=== PATIENT | female | born 1935 | race Caucasian/White ===

== ENCOUNTER 2016-11-29 16:16 | Inpatient (IN) | payer MEDICARE, MEDICAID ==
[~2016-11-29] VITALS: Ht 167.6 cm; Wt 72.1 kg
[2016-11-29 19:00] VITALS: BP 99/53
[2016-11-29] MEDS ORDERED: PHOSLO667 MG PO (19:03)
[2016-11-29] MEDS ORDERED: FOSINOPRIL SODI40 MG PO (19:04)
[2016-11-29] MEDS ORDERED: VITAMIN B-1000 MCG/M SQ (19:05)
[2016-11-29] MEDS ORDERED: LASIX80 MG PO (19:06)
--- NOTE | 2016-11-29 19:07 | NUR ---
184 RECEIVED PT VIA EMS FROM [facility]. PT WITH ESRD, MISSED DIALYSIS THURSDAY DIDNT FEEL WELL SHOWED UP TO ER WITH PNA AND POSSIBLE SEPSIS NEW ONSET A FIB, AMIODERONE GTT. PT TRANSFERRED TO BED HOOKED UP, AWAKE ALERT ORIENTED ABLE TO ANSWER ALL QUESTIONS. PIV X 2 TO RIGHT ARM. RESERVE LEFT. 02 ON 4L. BP LOW. HR IN 120S
[2016-11-29] MEDS ORDERED: ECOTRIN325 MG PO (19:08)
[2016-11-29] MEDS ORDERED: PREDNISONE20 MG PO (19:08)
[2016-11-29] MEDS ORDERED: DESERYL100 MG PO (19:08)
[2016-11-29] MEDS ORDERED: LOVASTATIN20 MG PO (19:09)
[2016-11-29] MEDS ORDERED: COREG12.5 MG PO (19:09)
--- NOTE | 2016-11-29 19:40 | NUR ---
Assessment complete. See flowsheet. Pt awake, alert, oriented x 4 and following all commands and conversation. Pupils size 3 bilaterally ERRLA. Pt moving all extremities with 4/5 strength. No edema noted. O2 @ 4L NC and decreased to 3L NC for SPO2 98%. Respirations unlabored. Lung sounds present crackles to all basurto. Pt cough strong and non-productive. HR CAF with S1S2 auscutlated. All peripheral pulses weak/palpable. Right A/C PIV site CDI with NS infusion moved to site and rate decreased from 50cc/hr to 5cc/hr KVO rate with Amiodarone gtt infusing @ 1mg/min (33.3cc/hr). Right wrist PIV site CDI no s/s infection or infiltration saline locked. Abdomen soft, non-tender with BS present to all quadrants. Left upper arm fistula site CDI thrill palpated/bruit auscultated. SCDs secured bilaterally. Temp 98.5F orally. Call light and bedside table placed within pt reach. Fresh ice water provided. Pt denies pain at this time. Heels bridged. No further request at this time. CPOC.
[2016-11-29 19:51] VITALS: BP 99/48; BMI 25.7
[2016-11-29 20:00] VITALS: BP 92/61
[2016-11-29 21:00] VITALS: BP 99/56
--- NOTE | 2016-11-29 21:00 | NUR ---
here with pt seen. Status relayed. Orders received. Family here for visitation with update given and questions addressed.
--- NOTE | 2016-11-29 21:40 | NUR ---
Pt resting with no changes. Call light and bedside table remain within pt reach. CPOC.
[2016-11-29 22:00] VITALS: BP 97/56
[2016-11-29 23:00] VITALS: BP 86/45
--- NOTE | 2016-11-29 23:40 | NUR ---
Reassessment complete. See flowsheet. Pt resting quietly with VSS. No s/s pain or distress. O2 @ 3L NC. Respirations unlabored. HR remains CAF with S1S2 auscultated. All peripheral pulses remain weak/palpable. NO IVF changes to note. PIV sites remains CDI; unchanged. BS +. Pt comfortable at this time and denies repositioning. Call light and bedside table within pt reach. No other changes to note. CPOC.
[2016-11-30] VITALS (24 sets, daily range): BP systolic 78–109; BP diastolic 42–55; Ht 167.6 cm; Wt 72.1 kg
--- NOTE | 2016-11-30 00:01 | NUR ---
Cordarone gtt rate decreased to 0.5mg/min (16.7cc/hr). Pt helped on bedpan per request for void attempt.
--- NOTE | 2016-11-30 01:40 | NUR ---
Pt resting quietly with VSS. NO s/s pain or distress and allowed to continue resting undisturbed. Call light and bedside table remain within pt reach. CPOC.
--- NOTE | 2016-11-30 03:40 | NUR ---
Pt awake and repositioned for CXR. Afterwards, pt positioned to right side per request with HOB @ 30 degrees. No neuro changes to note. O2 @ 3L NC. Lung sounds continue to present crackles to all basurto. HR currently UCAF 113BPM with S1S2 auscultated. PIV sites CDI with NO IVF changes to note. BS +. Arms and heels rebridged. Pt denies further request at this time. Call light and bedside table remain within pt reach. CPOC.
--- NOTE | 2016-11-30 05:40 | NUR ---
Pt resting quietly with VSS. NO s/s pain or distress and allowed to continue resting undisturbed. Call light and bedside table remain within pt reach. CPOC.
[2016-11-30 06:47] LABS: BASOPHILS 0.1 % (0.0-2.0); CALCIUM 8.3 mg/dL (8.5-10.1); CARBON DIOXIDE 20.3 mmol/L (21.0-32.0); CREATININE - SERUM 7.7 mg/dL (0.6-1.3); EOSINOPHILS 0 % (0-7); HEMATOCRIT 27.1 % (36.0-48.0); HEMOGLOBIN 9.1 g/dL (12-16); IMMATURE GRANULOCYTES 11.1 % (0-5); LYMPHOCYTES 3.7 % (15-50); MCH 32.6 pg (26.0-34.0); MCHC 33.6 g/dL (31.0-37.0); MCV 97.1 fL (80.0-100.0); MEAN PLATELET VOLUME 11.6 fL (7.4-10.4); MONOCYTES 4.3 % (2-11); NEUTROPHILS 80.8 % (40-80); PHOSPHOROUS 5.2 mg/dL (2.5-4.9); PLATELET COUNT 187 10x3/uL (130-400); POTASSIUM - SERUM 4.3 mmol/L (3.5-5.1); RBC 2.79 10x6/uL (4.00-5.40); RDW 13.1 % (11.5-14.5); WBC 18.9 10x3/uL (4.8-10.8)
--- NOTE | 2016-11-30 08:43 | NUR ---
0700 received pt lying in bed eyes closed, no distress noted. vss on monitor. normal sinus rythm on monitor in 60s remains on amiodorone gtt at 0.5mg/min. 02 at 3l per nc. lungs remain course with crackels. breakfast given and set up. PIV to right ac and forearm patent. no complaints will cont to monitor. 0800 renal employment assistant in to round 0840 dr baer paged about amiodorone gtt, call back and orders given to keep the gtt on at this time.
[2016-11-30 14:16] LABS: APPEARANCE HAZY (CLEAR); BILIRUBIN NEGATIVE (NEGATIVE); COLOR YELLOW (YELLOW); GLUCOSE 50 mg/dL (NEGATIVE); KETONE NEGATIVE (NEGATIVE); LEUKOCYTE ESTERASE 1+ (NEGATIVE); NITRITE NEGATIVE (NEGATIVE); PROTEIN 2+ mg/dL (NEGATIVE); UROBILINOGEN NORMAL (NORMAL)
[2016-11-30 14:25] LABS: EPITHELIAL CELLS 0-5 /hpf (0-5); RED CELLS - URINE 0-5 /hpf (0-5)
[2016-11-30 14:26] LABS: BACTERIA MODERATE /hpf (NONE SEEN)
--- NOTE | 2016-11-30 19:20 | NUR ---
ASSESSMENT COMPLETE. SINUS VIGREN SHOWING ON MONITOR. RR CRACKLES BILATERALLY THROUGHOUT ALL LOBES. AAO. PERRLA. GENERALIZED WEAKNESS AND SWELLING. PT ABLE TO CHANGE POSITIONS INDEPENDENTLY. LT ARM RESERVE; FISTULA PRESENT. DENIES NEEDS AT THIS TIME. WILL MONITOR.
--- NOTE | 2016-11-30 21:45 | NUR ---
PT TAKEN OFF NC @3L TO ROOM AIR. PT SAT 98% ON ROOM AIR. DENIES SOB. WILL CONTINUE TO MONITOR.
--- NOTE | 2016-11-30 23:15 | NUR ---
REASSESSMENT COMPLETE. NO CHANGES FROM PREVIOUS ASSESSMENT. WILL CONTINUE TO MONITOR.
[2016-12-01] VITALS (25 sets, daily range): BP systolic 104–139; BP diastolic 48–64
--- NOTE | 2016-12-01 01:05 | NUR ---
PT RESTING; EYES CLOSED. NO DISTRESS NOTED. VSS. CALL LIGHT IN REACH. WILL CONTINUE TO MONITOR.
--- NOTE | 2016-12-01 03:10 | NUR ---
REASSESSMENT COMPLETE. NO CHANGES FROM PREVIOUS ASSESSMENT. WILL CONTINUE TO MONITOR.
--- NOTE | 2016-12-01 05:15 | NUR ---
PT RESTING; EYES CLOSED. VSS. NO DISTRESS NOTED. WILL CONTINUE TO MONITOR.
[2016-12-01 06:29] LABS: BASOPHILS 0 % (0.0-2.0); EOSINOPHILS 0.4 % (0-7); HEMOGLOBIN 9.6 g/dL (12-16); IMMATURE GRANULOCYTES 0.5 % (0-5); LYMPHOCYTES 3.8 % (15-50); MCH 32.5 pg (26.0-34.0); MCHC 33.1 g/dL (31.0-37.0); MCV 98.3 fL (80.0-100.0); MEAN PLATELET VOLUME 11.2 fL (7.4-10.4); MONOCYTES 3.3 % (2-11); PLATELET COUNT 188 10x3/uL (130-400); RBC 2.95 10x6/uL (4.00-5.40); RDW 13.1 % (11.5-14.5); WBC 22.8 10x3/uL (4.8-10.8)
[2016-12-01 06:32] LABS: ANION GAP 21.7 mmol/L (8-16); CALCIUM 8.3 mg/dL (8.5-10.1); CREATININE - SERUM 8.2 mg/dL (0.6-1.3); PHOSPHOROUS 5.4 mg/dL (2.5-4.9); POTASSIUM - SERUM 3.7 mmol/L (3.5-5.1)
--- NOTE | 2016-12-01 07:00 | NUR ---
REC'D REPORT AND RESUMED CARE, SLEEPING AROUSABLE TO VERBAL, ORIENTED, DENIES PAIN. ASSESSMENT COMPLETE PER FLOWSHEET, LEFT ARM FISTULA WITH NO BRUIE OR THRILL, REPOSITIONED UP AND TO LEFT SIDE WITH PILLOW PROPPED TO BACK AND HEELS FLOATED, CALL LIGHT IN REACH, VOICES NO NEEDS AT THIS TIME
--- NOTE | 2016-12-01 09:42 | NUR ---
NUTRITION MONITORING & EVAL PT SLEEPING. NURSING REPORTS PT ONLY TAKING SMALL AMTS PO. WILL CONTINUE TO PROVIDE RENAL DIET, NEPRO. MONITOR PT PROGRESS. RD FOLLOWING
--- NOTE | 2016-12-01 09:52 | CN ---
PATIENT NAME:STEVENSON ROMERO MEDICAL RECORD: [id number] : 35 LOCATION:[id number] ADMIT DATE: 11/29/16 ACCOUNT: [id number] CONSULTING PHYSICIAN: JAMA LANDAVERDE MD REFERRING PHYSICIAN: WASHINGTON MCCRARY MD DATE OF CONSULTATION: 11/30/2016 HISTORY OF PRESENT ILLNESS: An 81-year-old lady with a known history of coronary artery disease. She has a history of end-stage renal disease, on dialysis, began feeling bad on Thursday, missed dialysis Thursday, presented to the ER in [place], was transferred here and found to be in atrial fibrillation with RVR, started on amiodarone drip, responded nicely, converted to normal sinus rhythm with basically normal 12-lead. She currently is feeling better on antibiotics, comfortable with normal conversation. We are asked to see her concerning her cardiovascular status. PAST MEDICAL HISTORY: Includes: 1. History of hypertension. 2. Dyslipidemia. 3. Restless leg syndrome. ALLERGIES: PENICILLIN. SOCIAL HISTORY: Lives in [place]. She is a nonsmoker, nondrinker. Good family support, has some difficulties in her ADLs. MEDICATIONS: Include lovastatin 20 at bedtime, Coreg 12.5 b.i.d., Monopril 40 daily, trazodone 100 at bedtime, aspirin 325 daily, Lasix 80 b.i.d., prednisone 20 daily. REVIEW OF SYSTEMS: The patient reports easy bruising but reports no swollen glands. The patient reports no fever, no night sweats, no significant weight gain, no significant weight loss. No significant exercise tolerance. The patient reports no dry eyes, no irritation, no vision change. Patient reports no difficulty hearing and no ear pain. Patient reports no frequent nose bleeds or nose and sinus problems. Patient reports on arm pain on exertion. No shortness of breath while lying down. No history of heart murmur. Patient reports no cough, no wheezing or coughing up blood. Patient reports no abdominal pain, no vomiting. Normal appetite. No diarrhea and not vomiting blood. No nausea and no constipation. Patient reports no incontinence. No difficulty urinating. No hematuria. No increased frequency. Patient reports no muscle aches. No weakness, no arthralgias, no back pain. No swelling of the extremities. Patient reports no abnormal mole, no jaundice, no rashes. Reports no loss of consciousness. No weakness and no numbness. No seizures, dizziness, or headaches. The patient reports no depression, no sleep disturbance, feeling safe in a relationship and no alcohol abuse. Patient reports on fatigue. Reports no runny nose or sinus pressure. No itching, no hives, and no frequent sneezing. PHYSICAL EXAMINATION: GENERAL: Elderly female, in no acute distress, multiple ecchymotic areas over the extremities. VITAL SIGNS: Blood pressure 108/48, pulse 67 and regular. HEENT: Normocephalic, atraumatic. NECK: No bruits noted. CONSULT REPORT [id number] ROMEROSTEVENSON HEART: Regular, soft II/ systolic ejection murmur. LUNGS: Good air excursion. ABDOMEN: Soft and nontender. EXTREMITIES: Pulses 2+. No edema. IMPRESSION: Atrial fibrillation, suspect secondary to current underlying illness and catecholamine drugs. At this point in time, continue amiodarone and treat this probably as a postop atrial fibrillation with amiodarone 4-6 weeks post-discharge and then expect we can stop this agent due to easy cardioversion. TRANSINT:[id number] Voice Confirmation ID: [id number] DOCUMENT ID: [id number] JAMA LANDAVERDE MD at 0952 CC: [id number] DICTATION DATE: 11/30/16957 SUB ASSEMBLY TEAM WORKER: 11/30/16 1130 ADM IN [id number] [place] [address]
--- NOTE | 2016-12-01 11:00 | NUR ---
SPOKE WITH JOHNNY AT DR TAI OFFICE RE: CONSULT FOR CATHIE, ASSESSMENT COMPLETE, SLEEPING WITH NO SIGNS OF DISTRESS, VSS, NO NEEDS AT THIS TIME
--- NOTE | 2016-12-01 12:15 | NUR ---
DAUGHTER ELLIOTT AND SON IN LAW AT BEDSIDE, STATUS UPDATED, EDUCATED ON HEMOSPLIT PLACEMENT, AWAITNG PROCEDURE TO BE COMPLETED IN AM, NO OTHER NEEDS AT THIS TIME
--- NOTE | 2016-12-01 12:40 | NUR ---
CONSENTS FOR HEMOSPLIT, BLOOD, AND ANESTHESIA SIGNED BY TROY GALLAGHER PER REQUEST OF PATIENT
--- NOTE | 2016-12-01 15:00 | NUR ---
SLEEPING WITH NO SIGNS OF DISTRESS, VSS, AROUSABLE TO VERBAL STIMULI, REPOSITIONED TO RIGHT SIDE WITH PILLOW PROPPED TO BACK AND HEELS FLOATED, NO ACUTE CHANGE FROM PREVIOUS ASSESSMENT
--- NOTE | 2016-12-01 17:15 | NUR ---
DINNER TRAY TO BEDSIDE, ASSIST WITH SET UP INDEPENDENT WITH EATING
--- NOTE | 2016-12-01 19:00 | NUR ---
REPORT RECEIVED AND ASSESSMENT COMPLETED. SEE FLOWSHEET FOR DETAILS. PT ALERT AND ORIENTED. RESTING IN ROOM. VSS. WILL CONTINUE TO MONITOR.
--- NOTE | 2016-12-01 19:00 | NUR ---
VCM MET W/ PATIENT AT THE BEDSIDE. SHE IS ALERT AND ORIENTED. APPEARED A LITTLE TIRED. SPOKE SOFTLY. SHE PLANS TO RETURN TO HER HOME AT DISCHARGE. PATIENT LIVES ALONE IN [place], [place]. HER SON LIVES "RIGHT ACROSS FROM " HER. SHE DRIVES HERSELF TO DIALYSIS. 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 HD DAYS ARE M/W/F AT 1145. [facility] PROVIDES ALL OF HER MEDS BUT SHORT TERM MEDS SHE CAN OBTAIN FROM [facility] IN [place]. PATIENT HAS 4 STEPS TO ENTER HER HOME W/ RAILS. IF SHE NEEDS HELP HER CHILDREN ASSIST. HER DAUGHTER , ELLIOTT, IS LISTED SHOE DYER AT [phone]. SHE WILL HAVE TRANSPORTATION TO HOME W/ HER CHILDREN PROVIDING ASSISTANCE. IT WILL TAKE APPROXIMATELY 2 HRS FOR THEM TO ARRIVE IN [place]. PATIENT DENIES ANY NEEDS. STATES SHE DOES NOT UTILIZE ANY SERVICES. SHE FEELS SAFE IN HER HOME. ALL UTILITIES ARE FUNCTIONAL. HER PCP WAS DR TOMASA SPEARS IN [place]. HE HAD TO RETIRE RECENTLY SECONDARY TO HIS HEALTH. SHE STATES HIS CLINIC WILL ASSIST HER IN FINDING A NEW PCP.
--- NOTE | 2016-12-01 21:00 | NUR ---
2100 MEDS GIVEN. NO CHANGES IN STATUS AT THIS TIME. VSS. WILL MONITOR.
--- NOTE | 2016-12-01 23:49 | NUR ---
REASSESSMENT COMPLETED. SEE FLOWSHEET.
[2016-12-02] VITALS: BP 136/62
[2016-12-02 01:00] VITALS: BP 123/63
--- NOTE | 2016-12-02 01:36 | NUR ---
NO CHANGES IN STATUS AT THIS TIME. VSS. WILL MONITOR.
--- NOTE | 2016-12-02 03:48 | NUR ---
REASSESSMENT COMPPLETED. SEE FLOWSHEET FOR DETAILS. PT NOW VERY LETHARGIC. UNABLE TO ANSWER QUESTIONS VERBALLY. CAPABLE OF NODDING HEAD TO ANSWER YES OR NO QUESTIONS. STILL ABLE TO FOLLOW COMMANDS. VSS. WILL MONITOR CLOSELY FOR ANY CHANGES.
[2016-12-02 04:34] LABS: BASOPHILS 0.1 % (0.0-2.0); EOSINOPHILS 0.8 % (0-7); HEMATOCRIT 27.2 % (36.0-48.0); HEMOGLOBIN 9.6 g/dL (12-16); IMMATURE GRANULOCYTES 2.2 % (0-5); LYMPHOCYTES 5.8 % (15-50); MCH 33.7 pg (26.0-34.0); MCHC 35.3 g/dL (31.0-37.0); MEAN PLATELET VOLUME 11.1 fL (7.4-10.4); MONOCYTES 3.9 % (2-11); NEUTROPHILS 87.2 % (40-80); PLATELET COUNT 179 10x3/uL (130-400); RBC 2.85 10x6/uL (4.00-5.40)
[2016-12-02 04:35] LABS: MCV 95.4 fL (80.0-100.0); WBC 15.8 10x3/uL (4.8-10.8)
[2016-12-02 04:45] LABS: APTT 37.8 SECONDS (22.8-39.4); INR 1.03 (0.85-1.17); PROTIME 13.4 SECONDS (11.6-15.0)
[2016-12-02 04:52] LABS: ALBUMIN 1.7 g/dL (3.4-5.0); ANION GAP 20.4 mmol/L (8-16); BILIRUBIN - TOTAL 0.3 mg/dL (0.2-1.3); CALCIUM 8.3 mg/dL (8.5-10.1); CARBON DIOXIDE 19.4 mmol/L (21.0-32.0); CREATININE - SERUM 8.5 mg/dL (0.6-1.3); PHOSPHOROUS 5.6 mg/dL (2.5-4.9); POTASSIUM - SERUM 3.8 mmol/L (3.5-5.1); PROTEIN - SERUM 5.2 g/dL (6.4-8.2)
--- NOTE | 2016-12-02 04:55 | NUR ---
PT LOC CONTINUED TO DECREASE. LABS CHECKED, AND AM LABS DRAWN. RESULTS PENDING. ABG'S DRAWN. FACIAL DROOP BEGAN TO DEVELOP ON HER RIGHT SIDE. TESTED DIRECTOR LEARNING AND DEVELOPMENT STRENGTH AND FOOT STRENGTH. BOTH SHOWED RIGHT SIDED WEAKNESS. HEAD CT ORDERED BY DR MCCRARY, AND KENNEDI FRANCO PROTOCOL INITIATED.
--- NOTE | 2016-12-02 10:50 | NUR ---
PATIENT PATHWAYS - Patient from [facility], schedule is on Mon/Thu/Fri @ approx 12:00. Medical records uploaded & forwarded to the clinic for their records. MITCHEL PRL
--- NOTE | 2016-12-29 16:04 | DS ---
PATIENT:STEVENSON ROMERO :35 MEDICAL RECORD: [id number] DISCHARGE SUMMARY ADMISSION DATE: 11/29/16 DISCHARGE DATE: 12/02/16 HOSPITAL COURSE: This is a nice lady that was transferred from [place] with uremic symptoms and in need of dialysis. She was transferred down to the ICU here. This a.m. at approximately 5:00 a.m., I was called with right-sided hemiparesis, sudden onset. She was sent to the Emergency Room and stroke protocol was initiated and she was given TPA. She is now being transferred to [facility]. She has a left brachiocephalic AV fistula that clotted and surgery was consulted yesterday. Due to the OR schedule and her medication, she was set to have a HemoSplit catheter placed today and when stable, she was to have surgical intervention with a left brachiocephalic AV fistula and is now being transferred to [facility]. I am somewhat concerned if she is in need of dialysis. Blood pressure 123/63 at 1:00 a.m., 57, pulse ox 94%, resting, NAD, normocephalic, atraumatic with right hemiparesis, left clotted brachiocephalic AV fistula with some bruising. Chest is regular rhythm without a rub. Lungs are grossly clear to auscultation except for decreased breath sounds at the bases. Positive lower extremity edema. White count 15,800 with H&H 9.6/27.2. ABG was noted with 7.4 pH, 31 CO2, O2 of 81. Chemistry: Sodium 127, BUN 124, creatinine 8.5, phosphorus 5.6, albumin 1.7. She was admitted initially with atrial fibrillation and converted to sinus rhythm, on amiodarone. Her Lovenox was on hold for her procedure this morning. PLAN: Transfer to [facility]. I appreciate the assistance. She was on Rocephin and Zithromax for pneumonia on admission, which we will continue. DISPOSITION: To [facility] in critical condition. TRANSINT:[id number] Voice Confirmation ID: [id number] DOCUMENT ID: [id number] WASHINGTON MCCRARY MD at 1604 CC: [id number] DICTATION DATE: 12/02/16 07 FLUX TUBE ATTENDANT: 12/02/16 0744 DIS IN 12/02/16 [facility] [address] [facility] [place] [address]
== END 2016-12-02 07:23 | disposition short-term general hospital (02) | DRG 871 ==
LOC: D.ICU 16:16
PROVIDERS: Surgery; ADMIT Internal Medicine Nephrology
DX: A41.9 Sepsis, unspecified organism (principal); J18.9 Pneumonia, unspecified organism; N18.6 End stage renal disease; I12.0 Hypertensive chronic kidney disease with stage 5 chronic kidney disease or end stage renal disease; G81.91 Hemiplegia, unspecified affecting right dominant side; T82.9XXA Unspecified complication of cardiac and vascular prosthetic device, implant and graft, initial encounter; Z99.2 Dependence on renal dialysis; I25.10 Atherosclerotic heart disease of native coronary artery without angina pectoris; I48.91 Unspecified atrial fibrillation; E78.5 Hyperlipidemia, unspecified; G25.81 Restless legs syndrome; E83.39 Other disorders of phosphorus metabolism; D63.1 Anemia in chronic kidney disease; I95.9 Hypotension, unspecified; Y83.8 Other surgical procedures as the cause of abnormal reaction of the patient, or of later complication, without mention of misadventure at the time of the procedure

== ENCOUNTER 2016-12-02 05:18 | Emergency (ER) | payer MEDICARE, MEDICAID ==
[2016-11-30 11:03] VITALS: BMI 25.6
[~2016-12-02 05:18] MED LIST: COREG12.5 MG PO; DESERYL100 MG PO; ECOTRIN325 MG PO; FOSINOPRIL SODI40 MG PO; LASIX80 MG PO; LOVASTATIN20 MG PO; PHOSLO667 MG PO; PREDNISONE20 MG PO; VITAMIN B-1000 MCG/M SQ
== END 2016-12-02 06:50 | disposition short-term general hospital (02) ==
LOC: D.ER 05:18
DX: R53.1 Weakness (principal); R29.810 Facial weakness